=== PATIENT | female | born 1985 | race Asian ===

== ENCOUNTER 2016-07-04 04:30 | Inpatient (IN) | payer SELFPAY ==
[~2016-07-04] VITALS: Ht 167.6 cm; Wt 82.4 kg
[2016-07-04] MEDS ORDERED: MISOPROSTOL 200 MCG TAB PR PRN ×2 (05:30→22:00)
[2016-07-04] MEDS ORDERED: ACETAMINOPHEN/CODEINE #3 TAB PO PRN ×3 (05:30→22:00)
[2016-07-04] MEDS ORDERED: BUTORPHANOL 2 MG INJ IV PRN (05:30)
[2016-07-04] MEDS ORDERED: DEXTROSE 5%-LR 1,000 ML IV PRN (05:30)
[2016-07-04] MEDS ORDERED: IBUPROFEN 600 MG TAB PO PRN (05:30)
[2016-07-04] MEDS ORDERED: OXYTOCIN 30 UNITS/LR 500 ML IV SCH ×3 (05:30→10:00)
[2016-07-04] MEDS ORDERED: OXYTOCIN 30 UNITS/LR 500 ML IV PRN ×2 (05:30→22:00)
[2016-07-04] MEDS ORDERED: CARBOPROST 250 MCG INJ IM PRN ×2 (05:30→22:00)
[2016-07-04] MEDS ORDERED: LACTATED RINGER'S 1,000 ML IV PRN (05:30)
[2016-07-04] MEDS ORDERED: LIDOCAINE 1% (MPF) 30 ML INJ INJ PRN (05:30)
[2016-07-04] MEDS ORDERED: AMPICILLIN 2 GM/NS (PMX) 100 ML IV ONE (05:30)
[2016-07-04] MEDS ORDERED: METHYLERGONOVINE 0.2 MG INJ IM PRN (05:30)
[2016-07-04 05:32] VITALS: Ht 167.6 cm; Wt 82.4 kg
--- NOTE | 2016-07-04 05:52 | RADRPT ---
PROCEDURE: US OB. CLINICAL INDICATION: Size and dates TECHNIQUE: Multiple sonographic images of the pelvis were obtained. Transabdominal imaging only w as performed. The images were reviewed on a PACS workstation. COMPARISON: No prior studies are available for comparison. FINDINGS: There is a single live intrauterine gestation. Cardiac activity is present with 146 beats per minut e. position is cephalic. Measurements were made in order to determine age. The results are as follows: BPD = 9.74 cm HC = 34.09 cm AC = 37.40 cm FL = 7.51 cm. Estimated gestational age of approximately 39 weeks 5 days. The estimated date of delivery is 07/06/2016. The EFW = 4059 g, greater than 97 %ile. The placenta is anterior. There is no evidence for an abruption or placenta previa. The VENKAT measures 9.4 cm. IMPRESSION: 1. Single live intrauterine gestation of approximately 39 weeks 5 days, by ultrasound criteria. 2. The estimated date of delivery is 07/06/2016. 3. The estimated weight is 4059 g, greater than 97 th %ile. 4. The VENKAT measures 9.4 cm. RPTAT: HH .Roxana Stevens MD, MD Date Time Electronically viewed and signed by .Roxana Stevens MD, on 07/04/2016 05:52 .G/
--- NOTE | 2016-07-04 05:57 | TRIAGE ---
OB Triage Datetime Report Generated by CPN: 07/04/2016 05:56 Datetime: 07/04/2016 05:55 Assessment Type: Triage Maternal Assessment Level of Consciousness: Fully Conscious Headache: Denies Blurred Vision: No Respiratory Effort: Unlabored; Regular Rhythm; Equal Expansion Nausea/Vomiting: Denies RUQ Epigastric Pain: Denies Facial Edema: None Fall Risk Assessment History of Falling: (0) No Secondary Diagnosis: (0) No Ambulatory Aid: (0) Bedrest/Nurse Assist IV Therapy: (0) No Gait: (0) Normal/Bedrest/Immobile Mental Status: (0) Oriented to Own Ability Fall Score: 0 Fall Risk Score Definition: No Risk: No action required Datetime: 07/04/2016 05:00 Stage of : OB Triage Datetime: 07/04/2016 04:52 Membrane Status: Ruptured Datetime: 07/04/2016 04:51 EGA: 37.3 Datetime: 07/04/2016 04:48 Vaginal Exam Dilatation (cms): 0.5 Effacement (%): 60 Station: -3 Exam By: SAVANNAH RUFFIN Cervix, Consistency: Soft Datetime: 07/04/2016 04:47 Time of Arrival: 07/04/2016 04:30 EGA: 37.3 Arrived By: Wheelchair Arrived From: Home Chief Complaint: SROM Movement: Present Contractions: Denies/Absent Rupture of Membranes: Ruptured Vaginal Discharge: Denies Recent Sexual Intercouse: Denies Abdominal Trauma: Not Applicable Patient Complaints: Other Time Provider Notified: 07/04/2016 05:00 Provider Notified: delshad Initial Plan: EFM,
[2016-07-04 06:50] LABS: ADD SCAN DIFF NO
[2016-07-04 06:53] LABS: BASOPHILS % 0.5 % (0.0-2.0); EOSINOPHILS % 0.2 % (0.0-7.0); HEMATOCRIT 34.9 % (37.0-47.0); HEMOGLOBIN 11.9 g/dl (12.0-16.0); LYMPHOCYTES # 1.6 10^3/ul (0.8-2.9); LYMPHOCYTES % 18.2 % (15.0-51.0); MEAN CORPUSCULAR HEMOGLOBIN 30.7 pg (29.0-33.0); MEAN CORPUSCULAR HGB CONC 34.1 g/dl (32.0-37.0); MEAN CORPUSCULAR VOLUME 90.2 fl (82.0-101.0); MEAN PLATELET VOLUME 8.7 fl (7.4-10.4); MONOCYTE # 0.6 10^3/ul (0.3-0.9); MONOCYTES % 7.3 % (0.0-11.0); NEUTROPHIL # 6.4 10^3/ul (1.6-7.5); NEUTROPHILS % 73.3 % (39.0-77.0); PLATELET COUNT 244 10^3/UL (140-415); RED BLOOD COUNT 3.87 10^6/ul (4.20-5.40); RED CELL DISTRIBUTION WIDTH 13.7 % (11.5-14.5); WHITE BLOOD COUNT 8.7 10^3/ul (4.8-10.8)
[2016-07-04] MEDS: LACTATED RINGER'S 1,000 ML IV SCH ×2 (06:56→13:08)
[2016-07-04 07:13] LABS: INR 0.9; PROTIME 12.1 Sec (12.2-14.2); PT RATIO 0.9
[2016-07-04 07:14] LABS: PARTIAL THROMBOPLASTIN TIME 26.1 Sec (25.0-35.0)
[2016-07-04] MEDS ORDERED: ACCU-CHEK XX SCH (08:00)
[2016-07-04] MEDS ORDERED: AMPICILLIN 1 GM/NS (PMX) 50 ML IV SCH (09:30)
[2016-07-04] MEDS ORDERED: AMPICILLIN 2 GM/NS (PMX) 100 ML IVPB ONE (17:30)
[2016-07-04] MEDS ORDERED: FENTAnyl 2MCG/ML-ROPIV 0.2% 100 ML ONE (18:55)
[2016-07-04] MEDS ORDERED: NALOXONE (0.4 MG/ML) INJ IV PRN (19:30)
[2016-07-04] MEDS ORDERED: FENTAnyl 2MCG/ML-ROPIV 0.2% 100 ML BAG EPI SCH (19:30)
[2016-07-04] MEDS ORDERED: DIPHENHYDRAMINE 50 MG INJ IV PRN ×2 (19:30→22:00)
[2016-07-04] MEDS ORDERED: ONDANSETRON 4 MG INJ IV PRN ×2 (19:30→22:00)
[2016-07-04] MEDS ORDERED: AMPICILLIN 1 GM/NS (PMX) 50 ML IVPB SCH (21:00)
[2016-07-04] MEDS ORDERED: LACTATED RINGER'S 1,000 ML IV* SCH (21:50)
--- NOTE | 2016-07-04 21:59 | HP ---
Date/Time of Note Date/Time of Note DATE: 07/04/16 TIME: 21:52 OB - History Hx of Present Free Text/Dictation G1 IUP 37 weeks with GDM Diet control who reported to L&D with SROM and Not in labor, she was started on Pitocin. she progressed to complete dilation. Care: Good Care Ultrasounds: Normal mid trimester US Obstetrical Complications: Gestational Diabetes Medical Complications: None Past Family/Social History * Past Medical, Surgical, Family and Obstetric Histories reviewed from chart. OB Admission Exam Physical Exam HEENT: WNL Heart: Rhythm Normal Lungs: Clear, Equal Abdomen: WNL Extremities: Normal Reflexes: Normal Cervical Dilatation: 10cm Effacement: 100% Station: +1 Membranes: Ruptured Amniotic Fluid: Clear Last 72 hourBlood Glucose Bedside Glucose - 72 Hours Test 07/04/16 10:56 07/04/16 15:19 Bedside Glucose 95mg/dL (70-220) 94mg/dL (70-220) Last 72 hours Lab Results CBC & BMP 07/04/16 06:25 OB Assessment/Plan Other Assessment: G1 IUP 37 weeks with GDM Diet control who reported to L&D with SROM and Not in labor, she was started on Pitocin. she progressed to complete dilation. Plan: Expectant Management BRIAN ROSAS MD July 04, 2016 21:59
[2016-07-04] MEDS ORDERED: ONDANSETRON 4 MG TAB PO PRN (22:00)
[2016-07-04] MEDS ORDERED: MAGNESIUM HYDROXIDE 30ML CUP PO PRN (22:00)
[2016-07-04] MEDS ORDERED: DIBUCAINE 1% 30 GM OINT PR PRN (22:00)
[2016-07-04] MEDS ORDERED: DIPHENHYDRAMINE 25 MG CAP PO PRN (22:00)
[2016-07-04] MEDS ORDERED: WITCH HAZEL/GLYCERIN PAD PR PRN (22:00)
[2016-07-04] MEDS ORDERED: SENNA/DOCUSATE NA (8.6MG/50MG) TAB PO PRN (22:00)
[2016-07-04] MEDS ORDERED: NA PHOSPHATE/BIPHOS 133 ML ENEMA PR PRN (22:00)
[2016-07-04] MEDS ORDERED: BENZOCAINE 20% 56 ML SPRAY TOP PRN (22:00)
[2016-07-04] MEDS ORDERED: LANOLIN 7 GM TUBE TOP PRN (22:00)
--- NOTE | 2016-07-04 22:03 | LDN ---
Date/Time of Note Date/Time of Note DATE: 07/04/16 TIME: 21:59 Delivery Summary G1 IUP 37 weeks with GDM Diet control who reported to L&D with SROM and Not in labor, she was started on Pitocin. she progressed to complete dilation. Placenta Delivered: Spontaneously Meconium: none Episiotomy: No Perineal laceration: 2 Laceration repair: 2nd degree vaginal and perineal lacerations was reparied with 3-0 vicryl was repaired in normal fashion. Anesthesia type: Epidural Sponge & Needle done & correct: Yes All needle counts correct: Yes Any foreign bodies felt in the: No Problems: Infant Delivery Information Sex Infant Sex: male Apgars 1 Minute: 8 5 Minute: 9 Suctioning Nose & mouth suctioned at harshal: Yes Delee suction performed: Yes Umbilical Cord Umbilical cord with: 3 Vessels Cord presentations: nuchal cord Nuchal cord present X: 1 Cord Blood was obtained: Yes Mother & Baby Disposition Disposition Mom & Baby to Maternity; Good: Yes BRIAN ROSAS MD July 04, 2016 22:03
[2016-07-05 00:45] VITALS: BP 115/84; PULSE 90; RESP 18
[2016-07-05] MEDS: IBUPROFEN 600 MG TAB PO SCH ×4 (01:33→18:00)
[2016-07-05 04:15] VITALS: BP 104/57; PULSE 107; RESP 20
[2016-07-05 07:30] VITALS: BP 108/65; PULSE 97; RESP 16
[2016-07-05 08:19] LABS: ADD SCAN DIFF NO
--- NOTE | 2016-07-05 08:25 | DS ---
Date/Time of Note Date/Time of Note DATE: 07/05/16 TIME: 08:23 Obstetrical Discharge Record Final Diagnosis Final Diagnosis: Term delivered Vaginal Delivery Obstetrical Delivery: Spontaneous Complications Gestational Diabetes Augmentation: Yes Induction: No Rupture of Membranes: No Condition on Discharge Physical Assessment Voiding: Yes Bowel Movement: Yes Breast: Soft, non-tender, Filling Fundus: Firm Abdomen and Incision: soft, not tender Calf Tenderness: No Patient Condition: Good BRIAN ROSAS MD July 05, 2016 08:25
[2016-07-05 08:35] LABS: BASOPHILS % 0.2 % (0.0-2.0); EOSINOPHILS % 0.1 % (0.0-7.0); HEMATOCRIT 29.5 % (37.0-47.0); HEMOGLOBIN 10.2 g/dl (12.0-16.0); LYMPHOCYTES # 1.8 10^3/ul (0.8-2.9); LYMPHOCYTES % 15.7 % (15.0-51.0); MEAN CORPUSCULAR HEMOGLOBIN 31.2 pg (29.0-33.0); MEAN CORPUSCULAR HGB CONC 34.6 g/dl (32.0-37.0); MEAN CORPUSCULAR VOLUME 90.2 fl (82.0-101.0); MEAN PLATELET VOLUME 8.9 fl (7.4-10.4); MONOCYTE # 0.9 10^3/ul (0.3-0.9); MONOCYTES % 7.9 % (0.0-11.0); NEUTROPHIL # 8.5 10^3/ul (1.6-7.5); NEUTROPHILS % 75.7 % (39.0-77.0); PLATELET COUNT 227 10^3/UL (140-415); RED BLOOD COUNT 3.27 10^6/ul (4.20-5.40); RED CELL DISTRIBUTION WIDTH 13.6 % (11.5-14.5); WHITE BLOOD COUNT 11.2 10^3/ul (4.8-10.8)
[2016-07-05] MEDS: SENNA/DOCUSATE NA (8.6MG/50MG) TAB PO SCH ×2 (09:32→21:00)
[2016-07-05 12:06] VITALS: BP 109/59; PULSE 89
[2016-07-05 13:07] LABS: RUBELLA ANTIBODY - IGG 2.23 index
[2016-07-05 16:15] VITALS: BP 108/62; PULSE 68; RESP 16
[2016-07-05 19:30] VITALS: BP 109/62; PULSE 101; RESP 20
[2016-07-06 03:56] VITALS: BP 96/52; PULSE 81; RESP 18
[2016-07-06] MEDS: IBUPROFEN 600 MG TAB PO SCH ×4 (05:59→18:00)
[2016-07-06 07:41] VITALS: BP 101/67; PULSE 79; RESP 18
--- NOTE | 2016-07-06 08:28 | OPPN ---
Date/Time of Note Date/Time of Note DATE: 07/06/16 TIME: 08:27 Post-Anesthesia Notes Post-Anesthesia Note Last documented vital signs Vital Signs Date Time Temp Pulse Resp B/P Pulse Ox O2 Delivery O2 Flow Rate FiO2 07/06/16 03:56 97.9 81 18 96/52 Room Air Activity: WNL Respiratory function: WNL Cardiovascular function: WNL Mental status: Baseline Pain reasonably controlled: Yes Hydration appropriate: Yes Nausea/Vomiting absent: Yes CHENTE LARSON July 06, 2016 08:28
[2016-07-06] MEDS ORDERED: DIPHTH/TET/ACEL PERTUSS (ADULT) 0.5 ML VIAL IM* ONE (09:00)
[2016-07-06] MEDS ORDERED: MEASLES,MUMPS,RUBELLA VACCINE INJ SC* ONE (09:00)
[2016-07-06] MEDS ORDERED: VARICELLA VACCINE LIVE/PF 1,350 UNIT/0.5 ML ML SC* ONE (09:00)
[2016-07-06] MEDS: SENNA/DOCUSATE NA (8.6MG/50MG) TAB PO SCH (10:06)
[2016-07-06 15:50] VITALS: BP 98/65; PULSE 93; RESP 18
== END 2016-07-06 18:47 | disposition home or self-care (01) | DRG 775 ==
LOC: L-D 04:30 → OBT 04:30 → L-D 04:55 → PP1 07-05 00:41
PROVIDERS: ADMIT Specialist; ATTEND Specialist
PROC: 10E0XZZ Delivery of Products of Conception, External Approach (ICD-10-PCS; principal; 2016-07-04)
PROC: 0KQM0ZZ Repair Perineum Muscle, Open Approach (ICD-10-PCS; 2016-07-04)
DX: O24.420 Gestational diabetes mellitus in childbirth, diet controlled (principal); O70.1 Second degree perineal laceration during delivery; Z3A.37 37 weeks gestation of pregnancy; Z37.0 Single live birth
CPT/HCPCS: 62319; 76815; 82947; 82962; 85025; 85610; 85730; 86592; 86703; 86762; 86900; 86901; 87340; 90715; 90716; G0463; J0290; J2210; J2590; J3010; J7120